=== PATIENT | male | born 1970 | race Caucasian/White ===

== ENCOUNTER → 2019-04-16 | Outpatient (CLI) | payer OTHER | LOC: M.CT 10:48 | DX: Z13.6 Encounter for screening for cardiovascular disorders (principal) ==

== ENCOUNTER → 2019-04-16 | Outpatient (CLI) | payer OTHER ==
--- NOTE | 2019-04-21 13:45 | 24HR ---
[place] [address] HOLTER MONITOR REPORT Name: MATHIEU RANGEL Room: [facility]#: [id number] Admission: 04/16/19 Attend Phys: Carmen Wylie DO Discharge: Date of : 72 Date of Service: 04/19/19 0916 Report #: [id number] THIS REPORT FOR: cc: Carmen Wylie Maggie M. DO Holkins,Wilbert Ford MD [facility] ~ THIS REPORT FOR: //name// [facility] Test Date: 2019-04-19 Test Time: 09:16:19 Pat Name: MATHIEU RANGEL Department: Room: Gender: M Entertainment Musician: : 1970 Requested By: Carmen Wylie Order Number: [id number] Reading MD: Wilbert Atwood Interpretive Statements sinus rhythm at rates of 53-147, average 91 rare isolated pvc's rare pac's with very rare 3 and 4 beat runs of svt no significant pauses shortness of breath noted; no associated arrhythmias Electronically Signed On 04-19-2019 13:23:27 LEAD SYSTEMS DEVELOPER by Wilbert Atwood [email or web address] <ELECTRONICALLY SIGNED> By: Wilbert Atwood MD, FACC 04/19/19 1323 5 5 Wilbert Atwood MD, [facility] /EPI
== END ==
LOC: M.CRD 04-05 08:13
DX: R00.2 Palpitations (principal)

== ENCOUNTER → 2019-05-11 | Outpatient (CLI) | payer OTHER ==
[~2019-05-11] VITALS: Ht 188 cm; Wt 117.9 kg
[2019-05-11 12:56] LABS: CREATININE 0.9 mg/dL (0.6-1.3)
[2019-05-11 14:15] VITALS: BP 123/80; BP 127/91
[2019-05-11 14:33] VITALS: BP 115/85
== END ==
LOC: M.CT 05-07 13:00 → M.LAB 05-07 13:00 → M.CT 05-07 14:00 → M.LAB 12:37
PROVIDERS: Internal Medicine
DX: Z01.818 Encounter for other preprocedural examination (principal)

== ENCOUNTER 2019-05-20 09:39 | Observation (INO) | payer OTHER ==
[~2019-05-20] VITALS: Ht 188 cm; Wt 116.9 kg
[2019-05-20] VITALS (17 sets, daily range): BP systolic 98–154; BP diastolic 72–87
[2019-05-20] MEDS ORDERED: ASA81BEC PO (09:58)
[2019-05-20] MEDS ORDERED: LIPITOR40 MG PO (09:59)
[2019-05-20] MEDS ORDERED: CHLORTHALIDONE25 MG PO (10:00)
[2019-05-20] MEDS ORDERED: FLEXERIL PO (10:02)
[2019-05-20] MEDS ORDERED: TOPROL XL25 MG PO (10:03)
[2019-05-20] MEDS ORDERED: ZANAFLEX4 M1 PO (10:04)
[2019-05-20 10:14] LABS: HEMOGLOBIN 16.6 gm/dL (14.0-18.0); MCH 32.1 pg (26.0-34.0); MCHC 35.4 g/dL (28.0-37.0); MCV 90.7 fL (80.0-100.0); MPV 7.4 fl. (7.2-11.1); RBC 5.17 mil/uL (4.50-6.00); RDW-CV 12.8 % (10.5-14.5); WBC 7.7 thou/uL (4.0-11.0)
[2019-05-20 10:19] LABS: ANION GAP 7 mmol/L (7-16); BUN 13 mg/dL (7-18); CALCIUM 8.9 mg/dL (8.5-10.1); CHLORIDE 101 mmol/L (98-107); CO2 32 mmol/L (21-32); GLUCOSE 96 mg/dL (70-99); POTASSIUM 3.3 mmol/L (3.5-5.1); SODIUM 140 mmol/L (136-145)
[2019-05-20 10:20] LABS: APTT 27.3 Seconds (25.0-31.3); PROTIME 10.6 Seconds (9.20-11.50)
[2019-05-20 10:23] LABS: ALBUMIN 3.8 g/dL (3.4-5.0); ALKALINE PHOSPHATASE 90 U/L (46-116); CHOLESTEROL 135 mg/dL (<200); HDL CHOLESTEROL 36 mg/dL (>40); LDL CHOLESTEROL 75 mg/dL (<100); SGOT 31 U/L (15-37); SGPT 49 U/L (30-65); TC:HDL 3.8 Ratio (Not establshd); TOTAL PROTEIN 8.2 g/dL (6.4-8.2); TRIGLYCERIDE 123 mg/dL (<150); VLDL 25 mg/dL (<40)
[2019-05-20 10:30] LABS: SERUM ASSESSMENT Clear
[2019-05-20] MEDS ORDERED: CENTRUM SILVER1 EAC2 PO (15:16)
[2019-05-20] MEDS ORDERED: GLUCOSAMINE1000 MG PO (15:16)
--- NOTE | 2019-05-20 16:42 | EKG ---
[place] [address] ELECTROCARDIOGRAM REPORT Name: MATHIEU RANGEL Room: [address]#: [id number] Admission: 05/20/19 Attend Phys: Sony Zhong, Discharge: Date of : 72 Date of Service: 05/20/19 1035 Report #: [id number] THIS REPORT FOR: //name// [facility] Test Date: 2019-05-20 Test Time: 10:35:52 Pat Name: MATHIEU RANGEL Department: Room: [facility] Gender: M Hose Finisher: : 1970 Requested By: Sony Zhong Order Number: [id number] Ursula MD: Wilbert Atwood Measurements Intervals [place] Rate: 83 P: 22 WA: 172 QRS: -39 QRSD: 104 T: 31 QT: 392 QTc: 461 Interpretive Statements Sinus rhythm Left axis deviation No previous ECG available for comparison Electronically Signed On 05-20-2019 16:41:37 CDT by Wilbert Atwood [email or web address] <ELECTRONICALLY SIGNED> By: Wilbert Atwood MD, [facility] 05/20/19 1641 1035 1035 Wilbert Atwood MD, FACC /EPI
--- NOTE | 2019-05-20 16:45 | EKG ---
[place] [address] ELECTROCARDIOGRAM REPORT Name: MATHIEU RANGEL Room: [address]#: [id number] Admission: 05/20/19 Attend Phys: Sony Zhong, Discharge: Date of : 72 Date of Service: 05/20/19 1336 Report #: [id number] THIS REPORT FOR: //name// [facility] Test Date: 2019-05-20 Test Time: 13:36:06 Pat Name: MATHIEU RANGEL Department: Room: [facility] Gender: M Fondant Machine Operator: : 1970 Requested By: Sony Zhong Order Number: [id number] Ursula MD: Wilbert Atwood Measurements Intervals [place] Rate: 78 P: 34 OR: 175 QRS: -17 QRSD: 105 T: 20 QT: 414 QTc: 472 Interpretive Statements Sinus rhythm Borderline left axis deviation No previous ECG available for comparison Electronically Signed On 05-20-2019 16:43:52 CDT by Wilbert Atwood [email or web address] <ELECTRONICALLY SIGNED> By: Wilbert Atwood MD, [facility] 05/20/19 1643 133 35 Wilbert Atwood MD, FAC /EPI
--- NOTE | 2019-05-20 20:00 | NUR ---
RECEIVED REPORT AND ASSUMED CARE OF PT, ASSESSMENT COMPLETED. RT GROIN INTACT, NO HEMATOMA, REDNESS OF EDEMA. DENIES CP OR SOB. TELEMETRY ON SHOWING SR. WILL CONT TO MONITOR AND ASSIST NEEDED.
--- NOTE | 2019-05-20 20:40 | NUR ---
RECEIVED REPORT FROM BRANDON FROM TITLE ATTORNEY. PT ARRIVED ON TELE FLOOR AROUND 1415. PT ORIENTED TO ROOM, BED AND CALL LIGHT. ADMISSION HISTORY, EDUCATION, AND ASSESSMENT COMPLETED CHARTED. POST CATH VITALS COMPLETED CHARTED. RIGHT GROIN CATH SITE REMAINS CDI, NO HEMATOMA. FAMILY AT BEDSIDE. PT ABLE TO VOID PER URINAL. UP AROUND 1730. DENIED PAIN OR DISCOMFORT. MEDS PER EMAR. PT CURRENTLY WATCHING TV IN BED. CALL LIGHT IS WITHIN REACH. FALL PRECAUTIONS IN PLACE. HOURLY ROUNDING PERFORMED.
[2019-05-21] VITALS: BP 112/73
[2019-05-21 04:00] VITALS: BP 113/76
--- NOTE | 2019-05-21 06:44 | NUR ---
SLEPT WELL TONIGHT. RT GROIN REMAINS WITHOUT INCIDENT. GAIT STEADY TO AND FROM BR. TELEMETRY CONT TO SHOW SR. HS GOALS OF REST AND SAFETY. HOURLY ROUNDING OBSERVED.
[2019-05-21] MEDS ORDERED: NITROGLYCERIN0.4 MG SUBLING (07:36)
[2019-05-21] MEDS ORDERED: METOPROLOL SUCC25 M1 PO (07:36)
[2019-05-21] MEDS ORDERED: EFFIENT10 MG PO (07:36)
[2019-05-21 08:00] VITALS: BP 141/94
[2019-05-21 09:12] VITALS: BP 115/79
[2019-05-21 12:08] LABS: ALBUMIN 3.6 g/dL (3.4-5.0); CALCIUM 9.2 mg/dL (8.5-10.1); CREATININE 0.9 mg/dL (0.6-1.3); POTASSIUM 3.3 mmol/L (3.5-5.1); TOTAL PROTEIN 7.9 g/dL (6.4-8.2)
--- NOTE | 2019-05-21 16:49 | EKG ---
[place] [address] ELECTROCARDIOGRAM REPORT Name: MATHIEU RANGEL Room: [address]#: [id number] Admission: 05/20/19 Attend Phys: Sony Zhong, Discharge: 05/21/19 Date of : 72 Date of Service: 05/21/19 0927 Report #: [id number] THIS REPORT FOR: //name// [facility] Test Date: 2019-05-21 Test Time: 09:27:03 Pat Name: MATHIEU RANGEL Department: Room: [facility] Gender: M Library Aide: : 1970 Requested By: Sony Zhong Order Number: [id number] Ursula MD: Wilbert Atwood Measurements Intervals [place] Rate: 90 P: 16 PA: 174 QRS: -28 QRSD: 102 T: 16 QT: 380 QTc: 465 Interpretive Statements Sinus rhythm Borderline left axis deviation Compared to ECG 05/20/2019 13:36:06 No significant changes Electronically Signed On 05-21-2019 16:48:45 CDT by Wilbert Atwood [email or web address] <ELECTRONICALLY SIGNED> By: Wilbert Atwood MD, FACC 05/21/19 1648 0927 0927 Wilbert Atwood MD, [facility] /EPI
--- NOTE | 2019-05-22 13:02 | CARD ---
[address] [address] CARDIAC CATH REPORT Name: JUAN CARLOSMATHIEU MONTIEL Room: [address] Valdemar Hughes#: [id number] Admission: 05/20/19 Attend Phys: Sony Zhong MD Discharge: 05/21/19 Date of : 72 Report #: [id number] THIS REPORT FOR: //name// cc: Carmen Wylie Maggie M. DO ~ THIS REPORT FOR: //name// APPROVED REPORT Study performed: 05/20/2019 10:23:05 Patient Details Patient Status: Out-Patient Room #: The patient is a 49 year-old male Event Personnel Sony Zhong Chain Maker Machine, Wilbert Atwood Outboard Motor Mechanic, Jeanie Cantrell RN , Dasia Govea RN , Zeke Gunderson PORTABLE FEED MILL OPERATOR Monitor, Angelique Barker RTR Monitor, Najma Rodas RTR Scrub Procedures Performed Art Access - R femoral artery, Left Heart Cath w/or w/o Coronaries , LHC [facility] Place w/wo Plasty Single LAD, Hemostasis w/ Mynx Indication Positive stress test Risk Factors Hypercholesterolemia, Hypertension Admission/Lab Medications/Medications given during procedure Angiomax IV bolus 17 ml, Angiomax Drip IV 39.86 ml per hr, Nitroglycerin IC 150 mcg, Effient PO 60 mg Procedure Narrative The patient was brought electively to the Cardiac Catheterization Laboratory and was prepped and draped in a sterile manner. The right femoral groin area was infiltrated with 2% Lidocaine subcutaneous anesthesia. A 6F Norman sheath was inserted into the right femoral artery. Coronary angiography was performed using coronary diagnostic catheters. The right coronary system was accessed and visualized with a 6F JR4 catheter. The left coronary system was accessed and visualized with a 6F JL4 catheter. The [place] [address] CARDIAC CATH REPORT Name: MATHIEU RANGEL Room: [address] M..#: [id number] Admission: 05/20/19 Attend Phys: Sony Zhong MD Discharge: 05/21/19 Date of : 72 Report #: [id number] and visualized with a 6F Pigtail catheter. Left ventricular/Aortic Valve gradient assessed via catheter pullback. Left ventriculogram was performed in MORA projection. Pre-demployment femoral angiogram was performed . Closure device was deployed with a 6 Fr MynxGrip. The patient tolerated the procedure well and there were no complications associated with the procedure. There was no hematoma. Intraoperative Conscious Sedation Sedation start time: 11:27 Case end Time: 12:06 Fentanyl 100 mcg Versed 2 mg Fluoro Time: 8.8 minutes Dose: DAP [id number] cGycm2 1809 mGy Contrast Type and Amount: Visipaque 230 ml Diagnostic Cath Left Main 0% narrowing LAD 75% mid vessel stenosis Circumflex 30% distal narrowing Right Coronary Dominant vessel with 40% mid vessel narrowing Left Ventriculography The left ventricle is normal in size with contractility. The left ventricular ejection fraction is estimated to be 65%. Left ventricular wall motion abnormalities are not present. There is no mitral insufficiency. Hemodynamics The aortic pressure is 116/79 mmHg with a mean of 93 mmHg. The left ventricular pressure is 111/2 mmHg with a mean of mmHg. The left ventricular end diastolic pressure is 10 mmHg. PCI Technique Lesion Anticoagulation was achieved with Angiomax. Patient was preloaded with Angiomax IV bolus 17 ml. Percutaneous coronary intervention was performed on the mid left anterior descending artery segment. The lesion stenosis prior to intervention was 75% with LIBRA 3 flow. A 6F XB LAD 4.0 Guide Catheter was used to engage the left main ostium. A BMW 190cm Interventional Guidewire was used to cross the lesion. BALLOON DILATION A Balloon catheter Trek RX 2.25 X 12 was inserted and inflated up to 12.00atm for 14seconds. Additional Inflation: 17.00atm for 11seconds. [place] [address] CARDIAC CATH REPORT Name: JUAN CARLOSMATHIEU Room: [address] M.R.#: [id number] Admission: 05/20/19 Attend Phys: Sony Zhong MD Discharge: 05/21/19 Date of : 72 Report #: [id number] STENT DEPLOYMENT A drug-eluting stent Xience Jia 2.5X18mm was inserted and inflated up to 8.00atm for 12seconds. Additional Inflation: 10.00atm for 6seconds. Additional Inflation: 12.00atm for 10seconds. Final angiography reveals 10 % stenosis with LIBRA 3 flow. Conclusion #1 coronary artery disease characterized by the following: A 75% mid LAD stenosis B 30% distal circumflex narrowing C dominant right coronary artery with 40% mid vessel narrowing #2 normal left ventricular systolic function estimate ejection fraction 65% #3 normal left-sided hemodynamics study 4 successful percutaneous coronary intervention with deployment of a drug-eluting stent at site of 75% mid LAD stenosis with 10% residual narrowing and LIBRA-3 flow to the distal vessel Recommendations Cardiac Risk Reduction Program Aggressive Medical Therapy Medications Administered Aspirin (any) Prasugrel Diagnostic Cath Approved by: Sony Zhong MD Date/Time: 05/22/2019 13:00:01 <ELECTRONICALLY SIGNED> By: Wilbert Atwood MD, FACC 05/22/19 1300 1300 1300Wilbert Atwood MD, FAC /INF
--- NOTE | 2019-05-23 12:48 | D ---
[address] [address] DISCHARGE SUMMARY Name: MATHIEU RANGEL Room: [address] Valdemar Hughes#: [id number] Admission: 05/20/19 Attend Phys: Sony Zhong MD Discharge: 05/21/19 Date of : 72 Report #: [id number] THIS REPORT FOR: //name// cc: Carmen Wylie Maggie M. DO THIS REPORT FOR: //name// CC: Calixto Schwarz MD [facility] Carmen Sanchez DISCHARGE DIAGNOSES: 1. Coronary artery disease. 2. Unstable angina. 3. Hyperlipidemia. 4. Essential hypertension. 5. Paroxysmal supraventricular tachycardia. 6. Grade 1 diastolic dysfunction. PROCEDURES DURING THE HOSPITALIZATION: 1. Coronary angiography. 2. Left heart catheterization. 3. Percutaneous coronary intervention to the mid left anterior descending coronary artery. HOSPITAL COURSE: The patient was admitted to the hospital with complaints of chest discomfort and palpitations. He had documented coronary artery disease based on calcium score. His symptoms were concerning for angina. Cardiac catheterization revealed significant stenoses involving the mid left anterior descending coronary artery. The patient underwent percutaneous coronary intervention with placement of a 2.5 x 18 mm drug-eluting stent to the mid LAD without complication. The remainder of the patient's vasculature was only minimally plaqued. The patient tolerated the procedure well and without complication. The following day, the patient's access site was well healed. He is being discharged uneventfully. A left ventriculogram revealed an ejection fraction estimated to be 55-60%. No gross wall motion abnormalities were noted. DISCHARGE MEDICATIONS: Effient 10 mg daily, Nitrostat sublingual p.r.n., Toprol-XL 25 mg daily, aspirin 81 mg daily, atorvastatin 40 mg daily, chlorthalidone 25 mg daily, Flexeril 10 mg t.i.d. p.r.n., multivitamin 1 tablet daily, glucosamine 1000 [place] [address] DISCHARGE SUMMARY Name: MATHIEU RANGEL Room: [address] [place]awRSaw#: [id number] Admission: 05/20/19 Attend Phys: Sony Zhong MD Discharge: 05/21/19 Date of : 72 Report #: [id number] DISPOSITION: The patient is to follow up with Cardiology next week. <ELECTRONICALLY SIGNED> By: Sony Zhong MD, FACC 05/23/19 1248 0745 [id number] Zh[facility] MD, FACC /nt
== END 2019-05-21 10:50 | disposition home or self-care (01) ==
LOC: M.CL 09:39 → M.2W 13:24 → M.TBA-CV 13:24 → M.CL 14:00 → M.2W 14:25
PROVIDERS: ADMIT Internal Medicine Cardiovascular Disease
DX: I25.110 Atherosclerotic heart disease of native coronary artery with unstable angina pectoris (principal); I11.0 Hypertensive heart disease with heart failure; I50.30 Unspecified diastolic (congestive) heart failure; E78.5 Hyperlipidemia, unspecified; I47.1 Supraventricular tachycardia

== ENCOUNTER → 2019-11-11 | Outpatient (CLI) | payer OTHER ==
[~2019-11-11] MED LIST: ASA81BEC PO; CENTRUM SILVER1 EAC2 PO; CHLORTHALIDONE25 MG PO; EFFIENT10 MG PO; FLEXERIL PO; GLUCOSAMINE1000 MG PO; LIPITOR40 MG PO; METOPROLOL SUCC25 M1 PO; NITROGLYCERIN0.4 MG SUBLING; TOPROL XL25 MG PO; ZANAFLEX4 M1 PO
== END ==
LOC: M.CT 08:00
PROVIDERS: ATTEND Family Medicine
DX: R91.8 Other nonspecific abnormal finding of lung field (principal); K76.89 Other specified diseases of liver; K80.20 Calculus of gallbladder without cholecystitis without obstruction; R19.5 Other fecal abnormalities; K76.0 Fatty (change of) liver, not elsewhere classified; J98.4 Other disorders of lung

== ENCOUNTER → 2020-06-09 | Outpatient (CLI) | payer OTHER | LOC: M.MRI 13:04 | PROVIDERS: ATTEND Family Medicine | DX: S86.811A Strain of other muscle(s) and tendon(s) at lower leg level, right leg, initial encounter (principal); T14.8XXA Other injury of unspecified body region, initial encounter; M79.604 Pain in right leg; X58.XXXA Exposure to other specified factors, initial encounter; Y93.89 Activity, other specified; Y92.89 Other specified places as the place of occurrence of the external cause; Y99.8 Other external cause status ==